=== PATIENT | male | born 1985 | race Caucasian/White ===

== ENCOUNTER 2017-06-12 18:29 | Inpatient (IN) | payer OTHER ==
[~2017-06-12] VITALS: Ht 170.2 cm; Wt 81.4 kg
[2017-06-12] MEDS ORDERED: SODIUM CHLORIDE 0.9% 1000ML 1,000 ML IV STA (18:58)
[2017-06-12] MEDS ORDERED: OPTIRAY 320 IV PRN (19:00)
--- NOTE | 2017-06-12 19:08 | EMERGENCY ROOM VISIT NOTE ---
History Report prepared by Norman: Chang Delong Under the Supervision of: Dr. Bob Ross M.D. First contact with patient: 18:46 Chief Complaint: FEVER Stated Complaint: FEVER, CROHN'S FLAREUP, RUNNY NOSE, SNEEZING History of Present Illness The patient is a 31 year old male who presents to the Emergency Room with complaints of persistent fever starting about 6 days ago. His highest temperature was 102.5 degrees Fahrenheit. He also notes a runny nose. About 3 weeks ago, the patient started having a minor Crohn's flare up. He continues to have symptoms related to Crohn's disease. He started taking Lialda today as prescribed by Dr. Nash. He recently had a chest/abdomen x-ray with normal results. He reports intermittent left lower quadrant abdominal pain. He currently denies any pain. He reports a normal appetite. He denies any other complaints. Source of History: patient Onset: about 6 days ago Position: other (global) Symptom Intensity: No pain currently Quality: other (fever) Timing: other (persistent) Associated Symptoms: + abdominal pain Review of Systems See HPI for pertinent positives & negatives. A total of 10 systems reviewed and were otherwise negative. Past Medical & Surgical Medical Problems: (1) Bronchitis (2) Crohn's disease (3) Crohns disease (4) Fever Surgical Problems: (1) [place] teeth removed Family History Cancer Heart disease Hypertension Social History Smoking Status: Never Smoker Marital Status: Housing Status: lives with family Occupation Status: employed Current/Historical Medications Scheduled Mesalamine (Lialda), 2 TAB PO QAM Allergies Coded Allergies: No Known Allergies (Unverified , 06/12/17) Physical Exam Vital Signs Date Time Temp Pulse Resp B/P (MAP) Pulse Ox O2 Delivery O2 Flow Rate FiO2 06/12/17 21:45 38.3 118 18 125/88 96 Room Air 06/12/17 18:38 37.3 110 20 122/85 95 Room Air Physical Exam GENERAL: Patient is a healthy-appearing well-nourished HEAD: Normocephalic atraumatic EYES: Ocular movements intact pupils equal and react to light OROPHARYNX mucous membranes are moist no exudates present no erythema or edema present NECK: Supple no nuchal rigidity CHEST: Good equal expansion LUNGS: Clear and equal to auscultation CARDIAC: Normal S1 and S2 ABDOMEN: Soft tenderness in the left lower quadrant, no guarding BACK: No CVA tenderness EXTREMITIES: No pain upon palpation normal muscle strength in all groups no clubbing cyanosis or edema NEURO: Patient is following commands and answering questions appropriately. Alert and oriented x3 Cranial Nerves 2-12 grossly intact Medical Decision & Procedures ER Provider Diagnostic Interpretation: CT results as stated below per my review and radiologist interpretation: ABD/PELVIS IV CONTRAST ONLY HISTORY: 31 years-old Male Pt c/o acute left lower quadrant abdominal pain COMPARISON: None available TECHNIQUE: Multiple axial images of the abdomen and pelvis were obtained following the intravenous administration of 120 mL Optiray 320. A dose lowering technique was used consistent with the principals of ROSY. FINDINGS: Lung bases are generally clear. Inferior cardiac chambers are unremarkable. No pneumoperitoneum is identified. The liver, gallbladder, pancreas and adrenal glands appear normal. Apparent 5 mm low attenuating lesion of the medial spleen is thought to reflect a pseudolesion secondary fat filled splenic cleft. Bilateral kidneys, ureters, urinary bladder, prostate appear normal. The abdominal aorta is normal in both course and caliber. Portal vein is patent. There are a few scattered mildly prominent retroperitoneal lymph nodes present with aortic lymph nodes measuring up to 1.2 x 0.8 cm mesenteric lymph nodes are seen measuring up to 1.5 x 1.0 cm. Stomach appears normal. There are a few nondilated loops of small bowel demonstrate air-fluid leveling suggesting ileus. There is circumferential wall thickening of the rectosigmoid extending to the hepatic flexure with associated surrounding inflammatory stranding and engorgement of the mesenteric vessels. No significant inflammation of the terminal ileum. There is no evidence of acute appendicitis. Fluid-filled rectosigmoid is compatible with associated diarrheal state. Soft tissues are unremarkable. 1.4 cm synovial herniation pit of the left proximal femur. There is no evidence of sacroiliitis. IMPRESSION: 1. Moderate circumferential wall thickening of the colon extending from the rectum to the hepatic flexure with surrounding inflammatory changes is compatible with colitis. Considerations would include infectious colitis or inflammatory bowel disease. 2. No bowel obstruction. 3. Reactive small bowel ileus is noted along with reactive adenopathy. The above report was generated using voice recognition software. It may contain grammatical, syntax or spelling errors. Electronically signed by: Anderson Moura M.D. 06/12/2017 9:11 PM Dictated Date/Time: 06/12/2017 9:02 PM Laboratory Results 06/12/17 19:24 Red Blood Count 4.91, Mean Corpuscular Volume 86.2, Mean Corpuscular Hemoglobin 29.1, Mean Corpuscular Hemoglobin Concent 33.8, Mean Platelet Volume 10.8, Neutrophils (%) (Auto) 68.1, Lymphocytes (%) (Auto) 14.8, Monocytes (%) (Auto) 13.9, Eosinophils (%) (Auto) 2.2, Basophils (%) (Auto) 0.3, Neutrophils # (Auto ) 9.87, Lymphocytes # (Auto) 2.14, Monocytes # (Auto) 2.01, Eosinophils # (Auto ) 0.32, Basophils # (Auto) 0.05 06/12/17 19:24 Test 06/12/17 19:24 06/12/17 19:33 06/12/17 20:00 White Blood Count 14.49 K/uL (4.8-10.8) Red Blood Count 4.91 M/uL (4.7-6.1) Hemoglobin 14.3 g/dL (14.0-18.0) Hematocrit 42.3 % (42-52) Mean Corpuscular Volume 86.2 fL (80-100) Mean Corpuscular Hemoglobin 29.1 pg (25-34) Mean Corpuscular Hemoglobin Concent 33.8 g/dl (32-36) Platelet Count 305 K/uL (130-400) Mean Platelet Volume 10.8 fL (7.4-10.4) Neutrophils (%) (Auto) 68.1 % Lymphocytes (%) (Auto) 14.8 % Monocytes (%) (Auto) 13.9 % Eosinophils (%) (Auto) 2.2 % Basophils (%) (Auto) 0.3 % Neutrophils # (Auto) 9.87 K/uL (1.4-6.5) Lymphocytes # (Auto) 2.14 K/uL (1.2-3.4) Monocytes # (Auto) 2.01 K/uL (0.11-0.59) Eosinophils # (Auto) 0.32 K/uL (0-0.5) Basophils # (Auto) 0.05 K/uL (0-0.2) RDW Standard Deviation 40.2 fL (36.4-46.3) RDW Coefficient of Variation 12.6 % (11.5-14.5) Immature Granulocyte % (Auto) 0.7 % Immature Granulocyte # (Auto) 0.10 K/uL (0.00-0.02) Est Creatinine Clear Calc Drug Dose 98.1 ml/min Estimated GFR () 102.4 Estimated GFR (Non- 88.4 BUN/Creatinine Ratio 7.2 (10-20) Calcium Level 8.7 mg/dl (8.5-10.1) Total Bilirubin 0.7 mg/dl (0.2-1) Direct Bilirubin 0.2 mg/dl (0-0.2) Aspartate Amino Transf (AST/SGOT) 9 U/L (15-37) Alanine Aminotransferase (ALT/SGPT) 22 U/L (12-78) Alkaline Phosphatase 85 U/L (45-117) Total Protein 6.9 gm/dl (6.4-8.2) Albumin 2.9 gm/dl (3.4-5.0) Bedside Hemoglobin 14.3 g/dl (14.0-18.0) Bedside Hematocrit 42 % (42-52) Bedside Sodium 135 mEq/L (135-144) Bedside Potassium 3.4 mEq/L (3.3-5.0) Bedside Chloride 96 mEq/L (101-112) Bedside Total CO2 27 mEq/l (24-31) Anion Gap 16.0 mmol/L (16-25) Bedside Blood Urea Nitrogen 7 mg/dl (7-18) Bedside Creatinine 1.2 mg/dl (0.6-1.3) Bedside Glucose (other) 109 mg/dl (70-99) Bedside Ionized Calcium (Chepe) 1.10 mmol/l (1.12-1.32) Urine Color YELLOW Urine Appearance CLEAR (CLEAR) Urine pH 6.0 (4.5-7.5) Urine Specific [place] 1.017 (1.000-1.030) Urine Protein TRACE (NEG) Urine Glucose (UA) NEG (NEG) Urine Ketones 2+ (NEG) Urine Occult Blood NEG (NEG) Urine Nitrite NEG (NEG) Urine Bilirubin NEG (NEG) Urine Urobilinogen NEG (NEG) Urine Leukocyte Esterase NEG (NEG) Urine WBC (Auto) 5-10 /hpf (0-5) Urine RBC (Auto) 0-4 /hpf (0-4) Urine Hyaline Casts (Auto) 5-10 /lpf (0-5) Urine Epithelial Cells (Auto) 20-30 /lpf (0-5) Urine Bacteria (Auto) NEG (NEG) Labs reviewed by ED physician. Medications Administered Medications (Trade) Dose Ordered Sig/Ameya Route Start Time Stop Time Status Last Admin Dose Admin Sodium Chloride 1,000 ml @ 999 mls/hr Q1H1M STAT IV 06/12/17 18:58 06/12/17 19:58 DC 06/12/17 19:44 999 MLS/HR Ketorolac Tromethamine (Toradol Inj) 30 mg NOW STAT IV 06/12/17 21:54 06/12/17 21:56 DC 06/12/17 22:39 30 MG ED Course 184: Past medical records reviewed. The patient was evaluated in room C09. A complete history and physical examination was performed. 1857: Sodium Chloride 1000 ml @ 999 mls/hr IV 2153: Flagyl/NSS 500 mg IV, Cipro/D5W 400 mg IV, Toradol Inj 30 mg IV 7: Upon reexamination the patient is resting comfortably. I discussed results and treatment plan with the patient. He verbalizes agreement and understanding. [facility] The patient will be evaluated for further management. Medical Decision Differential diagnosis: Etiologies such as appendicitis, diverticulitis, PUD, biliary pathology, UTI, pancreatitis, obstruction, mesenteric ischemia, aortic pathology, infections, inflammatory bowel disease, renal colic, as well as others were entertained. This is a 31-year-old male who presents emergency department complaining of fevers as well as abdominal pain. 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 He was seen in the office today and started on a medication. He does have an elevation in his white blood count cell count and the patient's CAT scan is concerning for colitis. He did spike a fever in the emergency department and based on this finding along with the elevation in the white blood cell count I did recommend that the patient be admitted to the medicine service. Patient was in agreement with the treatment plan. Medication Reconcilliation Current Medication List: was personally reviewed by me Blood Pressure Screening Patient's blood pressure: Normal blood pressure Consults Time Called: 2155 Consulting Physician: [facility] Returned Call: [phone] [facility] Impression Primary Impression: Fever Additional Impression: Colitis Scribe Attestation The scribe's documentation has been prepared under my direction and personally reviewed by me in its entirety. I confirm that the note above accurately reflects all work, treatment, procedures, and medical decision making performed by me. Departure Information Dispostion Being Evaluated By Hospitalist Referrals Graeme Nash M.D. (PCP) Patient Instructions My [facility] Problem Qualifiers Primary Impression: Fever Fever type: unspecified Qualified Codes: R50.9 - Fever, unspecified
[2017-06-12 19:37] LABS: BASO % 0.3 %; BASO ABS # 0.05 K/uL (0-0.2); COMPLETE YES; EOS % 2.2 %; HEMATOCRIT 42.3 % (42-52); IG% 0.7 %; LYMPH % 14.8 %; LYMPH ABS # 2.14 K/uL (1.2-3.4); MEAN CELL VOLUME 86.2 fL (80-100); MEAN CORPUSCULAR HEMOGLOBIN 29.1 pg (25-34); MEAN CORPUSCULAR HGB CONC 33.8 g/dl (32-36); MEAN PLATELET VOLUME 10.8 fL (7.4-10.4); MONO % 13.9 %; NEUT % 68.1 %; PLATELET COUNT 305 K/uL (130-400); RED BLOOD COUNT 4.91 M/uL (4.7-6.1); WHITE BLOOD COUNT 14.49 K/uL (4.8-10.8)
[2017-06-12 19:50] LABS: ISTAT CREATININE 1.2 mg/dl (0.6-1.3); ISTAT HEMOGLOBIN 14.3 g/dl (14.0-18.0); ISTAT IONIZED CALCIUM 1.1 mmol/l (1.12-1.32)
[2017-06-12 19:58] LABS: BUN/CREATININE RATIO 7.2 (10-20); CALCIUM 8.7 mg/dl (8.5-10.1); CREATININE 1.1 mg/dl (0.60-1.40); POTASSIUM 3.4 mmol/L (3.5-5.1)
[2017-06-12] MEDS ORDERED: MESA1.2T PO (20:57)
--- NOTE | 2017-06-12 21:12 | DIAGNOSTIC IMAGING REPORT ---
ABD/PELVIS IV CONTRAST ONLY HISTORY: 31 years-old Male Pt c/o acute left lower quadrant abdominal pain COMPARISON: None available TECHNIQUE: Multiple axial images of the abdomen and pelvis were obtained following the intravenous administration of 120 mL Optiray 320. A dose lowering technique was used consistent with the principals of ROSY. FINDINGS: Lung bases are generally clear. Inferior cardiac chambers are unremarkable. No pneumoperitoneum is identified. The liver, gallbladder, pancreas and adrenal glands appear normal. Apparent 5 mm low attenuating lesion of the medial spleen is thought to reflect a pseudolesion secondary fat filled splenic cleft. Bilateral kidneys, ureters, urinary bladder, prostate appear normal. The abdominal aorta is normal in both course and caliber. Portal vein is patent. There are a few scattered mildly prominent retroperitoneal lymph nodes present with aortic lymph nodes measuring up to 1.2 x 0.8 cm mesenteric lymph nodes are seen measuring up to 1.5 x 1.0 cm. Stomach appears normal. There are a few nondilated loops of small bowel demonstrate air-fluid leveling suggesting ileus. There is circumferential wall thickening of the rectosigmoid extending to the hepatic flexure with associated surrounding inflammatory stranding and engorgement of the mesenteric vessels. No significant inflammation of the terminal ileum. There is no evidence of acute appendicitis. Fluid-filled rectosigmoid is compatible with associated diarrheal state. Soft tissues are unremarkable. 1.4 cm synovial herniation pit of the left proximal femur. There is no evidence of sacroiliitis. IMPRESSION: 1. Moderate circumferential wall thickening of the colon extending from the rectum to the hepatic flexure with surrounding inflammatory changes is compatible with colitis. Considerations would include infectious colitis or inflammatory bowel disease. 2. No bowel obstruction. 3. Reactive small bowel ileus is noted along with reactive adenopathy. The above report was generated using voice recognition software. It may contain grammatical, syntax or spelling errors. Electronically signed by: Anderson Moura M.D. 06/12/2017 9:11 PM Dictated Date/Time: 06/12/2017 9:02 PM
[2017-06-12] MEDS ORDERED: KETOROLAC TROMETHAMINE 30 MG/ML VIAL IV STA (21:54)
[2017-06-12] MEDS ORDERED: METRONIDAZOLE 500MG / 100ML NSS IV STA (21:54)
[2017-06-12] MEDS ORDERED: CIPROFLOXACIN 400MG / 200ML D5W IV STA (21:54)
--- NOTE | 2017-06-12 22:37 | History and Physical ---
History & Physical Date & Time of Service: Jun 12, 2017 at 22:36 . Chief Complaint: abdominal pain, nausea, vomiting, diarrhea . Primary Care Physician: Graeme Nash M.D. . History of Present Illness Source: patient, clinic records, hospital records 31 YO male followed by Dr. Nash for GI. Plans on establishing with Dr. Stuart for primary care. History of Crohn's disease diagnosed at the age of 17. Crohn's has been quiescent over past several years until 2-3 weeks ago. Developed several loose stools / day, occasionally with a small amount of rectal bleeding. Intermittent LLQ abdominal pain. Low grade fevers. He was seen by Dr. Nash in clinic on 06/11/17. Stool studies and other labs were ordered. C diff was negative. Preliminary stool culture negative so far. Started on Lialda. Came to ED tonight because of worsening symptoms- fever, nausea, vomiting, more frequent loose stools, more severe left-sided abdominal pain. . Past Medical/Surgical History Medical Problems: (1) Bronchitis Status: Resolved (2) Crohn's disease Status: Resolved Surgical Problems: (1) [place] teeth removed Status: Resolved Family History MOTHER Multiple sclerosis GRANDMOTHER Ulcerative colitis Social History Smoking Status: Never Smoker Alcohol Use: occasionally Marital Status: Occupational Status: employed Allergies Coded Allergies: No Known Allergies (Unverified , 06/12/17) Home Medications Scheduled Mesalamine (Lialda), 2 TAB PO QAM Review of Systems Constitutional: + fever, + weight loss Eyes: No worsening of vision, No diplopia ENT: + nasal symptoms Respiratory: No cough, No shortness of breath Cardiovascular: No chest pain, No edema Abdomen: + problem reported (as noted above in HPI) Musculoskeletal: + problem reported (back pain) Genitourinary - Male: No hematuria, No dysuria Neurologic: + problem reported (mild headache assoicated with fevers) Endocrine: No excessive thirst, No excessive urination Hematologic / Lymphatic: No abnormal bleeding/bruising Integumentary: No rash, No new/changing skin lesions Physical Exam Vital Signs Date Time Temp Pulse Resp B/P (MAP) Pulse Ox O2 Delivery O2 Flow Rate FiO2 06/12/17 21:45 38.3 118 18 125/88 96 Room Air 06/12/17 18:38 37.3 110 20 122/85 95 Room Air General Appearance: + mild distress Head: normocephalic, atraumatic Eyes: normal inspection, PERRL, EOMI, sclerae normal ENT: hearing grossly normal, pharynx normal Neck: supple, no adenopathy, thyroid normal, trachea midline Respiratory/Chest: lungs clear, no respiratory distress, no accessory muscle use Cardiovascular: regular rate, rhythm, no edema, no gallop, no JVD, no murmur Abdomen/GI: normal bowel sounds, soft, no organomegaly, no pulsatile mass, + pertinent finding (moderate left-sided tenderness without rebound) Extremities/Musculoskelatal: no calf tenderness, no pedal edema 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 (PERRL, EOMI), alert, normal mood/ affect, oriented x 3 Skin: normal color, warm/dry, no rash Lymphatic: no adenopathy (cervical) Diagnostics Laboratory Results Results Past 24 Hours Test 06/12/17 19:24 06/12/17 19:33 Range/Units White Blood Count 14.49 4.8-10.8 K/uL Red Blood Count 4.91 4.7-6.1 M/uL Hemoglobin 14.3 14.0-18.0 g/dL Hematocrit 42.3 42-52 % Mean Corpuscular Volume 86.2 80-100 fL Mean Corpuscular Hemoglobin 29.1 25-34 pg Mean Corpuscular Hemoglobin Concent 33.8 32-36 g/dl Platelet Count 305 130-400 K/uL Mean Platelet Volume 10.8 7.4-10.4 fL Neutrophils (%) (Auto) 68.1 % Lymphocytes (%) (Auto) 14.8 % Monocytes (%) (Auto) 13.9 % Eosinophils (%) (Auto) 2.2 % Basophils (%) (Auto) 0.3 % Neutrophils # (Auto) 9.87 1.4-6.5 K/uL Lymphocytes # (Auto) 2.14 1.2-3.4 K/uL Monocytes # (Auto) 2.01 0.11-0.59 K/uL Eosinophils # (Auto) 0.32 0-0.5 K/uL Basophils # (Auto) 0.05 0-0.2 K/uL RDW Standard Deviation 40.2 36.4-46.3 fL RDW Coefficient of Variation 12.6 11.5-14.5 % Immature Granulocyte % (Auto) 0.7 % Immature Granulocyte # (Auto) 0.10 0.00-0.02 K/uL Sodium Level 136 136-145 mmol/L Potassium Level 3.4 3.5-5.1 mmol/L Chloride Level 102 98-107 mmol/L Carbon Dioxide Level 30 21-32 mmol/L Anion Gap 4.0 16.0 16-25 mmol/L Blood Urea Nitrogen 8 7-18 mg/dl Creatinine 1.10 0.60-1.40 mg/dl Est Creatinine Clear Calc Drug Dose 98.1 ml/min Estimated GFR () 102.4 Estimated GFR (Non- 88.4 BUN/Creatinine Ratio 7.2 10-20 Random Glucose 103 70-99 mg/dl Calcium Level 8.7 8.5-10.1 mg/dl Total Bilirubin 0.7 0.2-1 mg/dl Direct Bilirubin 0.2 0-0.2 mg/dl Aspartate Amino Transf (AST/SGOT) 9 15-37 U/L Alanine Aminotransferase (ALT/SGPT) 22 12-78 U/L Alkaline Phosphatase 85 45-117 U/L Total Protein 6.9 6.4-8.2 gm/dl Albumin 2.9 3.4-5.0 gm/dl Bedside Hemoglobin 14.3 14.0-18.0 g/dl Bedside Hematocrit 42 42-52 % Bedside Sodium 135 135-144 mEq/L Bedside Potassium 3.4 3.3-5.0 mEq/L Bedside Chloride 96 101-112 mEq/L Bedside Total CO2 27 24-31 mEq/l Bedside Blood Urea Nitrogen 7 7-18 mg/dl Bedside Creatinine 1.2 0.6-1.3 mg/dl Bedside Glucose (other) 109 70-99 mg/dl Bedside Ionized Calcium (Chepe) 1.10 1.12-1.32 mmol/l Diagnostic Radiology ABD/PELVIS IV CONTRAST ONLY HISTORY: 31 years-old Male Pt c/o acute left lower quadrant abdominal pain COMPARISON: None available TECHNIQUE: Multiple axial images of the abdomen and pelvis were obtained following the intravenous administration of 120 mL Optiray 320. A dose lowering technique was used consistent with the principals of ROSY. FINDINGS: Lung bases are generally clear. Inferior cardiac chambers are unremarkable. No pneumoperitoneum is identified. The liver, gallbladder, pancreas and adrenal glands appear normal. Apparent 5 mm low attenuating lesion of the medial spleen is thought to reflect a pseudolesion secondary fat filled splenic cleft. Bilateral kidneys, ureters, urinary bladder, prostate appear normal. The abdominal aorta is normal in both course and caliber. Portal vein is patent. There are a few scattered mildly prominent retroperitoneal lymph nodes present with aortic lymph nodes measuring up to 1.2 x 0.8 cm mesenteric lymph nodes are seen measuring up to 1.5 x 1.0 cm. Stomach appears normal. There are a few nondilated loops of small bowel demonstrate air-fluid leveling suggesting ileus. There is circumferential wall thickening of the rectosigmoid extending to the hepatic flexure with associated surrounding inflammatory stranding and engorgement of the mesenteric vessels. No significant inflammation of the terminal ileum. There is no evidence of acute appendicitis. Fluid-filled rectosigmoid is compatible with associated diarrheal state. Soft tissues are unremarkable. 1.4 cm synovial herniation pit of the left proximal femur. There is no evidence of sacroiliitis. IMPRESSION: 1. Moderate circumferential wall thickening of the colon extending from the rectum to the hepatic flexure with surrounding inflammatory changes is compatible with colitis. Considerations would include infectious colitis or inflammatory bowel disease. 2. No bowel obstruction. 3. Reactive small bowel ileus is noted along with reactive adenopathy. The above report was generated using voice recognition software. It may contain grammatical, syntax or spelling errors. Electronically signed by: Anderson Moura M.D. 06/12/2017 9:11 PM Dictated Date/Time: 06/12/2017 9:02 PM . Impression Assessment and Plan CROHN'S DISEASE Flare of Crohn's disease. No apparent infectious precipitation. CT shows left-sided colitis as noted. Initial management will consist of bowel rest, IV fluids, analgesics, antiemetics, IV antibiotic therapy. Consult GI re: further evaluation and management. HYPOKALEMIA Secondary to GI losses. IV replacement. Follow. VTE PROPHYLAXIS No anticoagulants due to GI bleeding. SCD's. Ambulate. DISPOSITION Expected discharge to home. GI follow-up with Dr. Nash. FM follow-up with Dr. Stuart. . Additional Copies To Quique Stuart M.D.
[2017-06-12] MEDS ORDERED: ONDANSETRON INJ 2 MG/ML 2 ML VIAL IV PRN (22:45)
[2017-06-12 22:57] LABS: URINE APPEARANCE CLEAR (CLEAR); URINE BILIRUBIN NEG (NEG); URINE COLOR YELLOW; URINE EPITHELIAL CELL AUTO 20-30 /lpf (0-5); URINE NITRITE NEG (NEG); URINE SPECIFIC GRAVITY 1.017 (1.000-1.030); UROBILINOGEN NEG (NEG)
[2017-06-12 23:00] LABS: MANUAL MICROSCOPIC REQUIRED? NO; REVIEW REQ? NO
[2017-06-13 00:50] VITALS: BP 135/84; PULSE 95; TEMP 37.1; O2SAT 95; Ht 170.2 cm; Wt 81.4 kg
[2017-06-13] MEDS: D5W AND LACTATED RINGERS 1,000 ML IV SCH ×4 (00:56→19:22)
[2017-06-13] MEDS: AMPICILLIN/SULBACTAM SOD INJ 3,000 MG in SODIUM CHLORIDE 0.9% 100ML 100 ML IV SCH ×4 (02:43→19:22)
[2017-06-13 04:00] VITALS: BP 119/67; PULSE 136; TEMP 37.7; O2SAT 98
[2017-06-13] MEDS: ACETAMINOPHEN 325 MG TAB PO PRN ×3 (05:37→17:09)
[2017-06-13 08:00] VITALS: BP 116/71; PULSE 125; TEMP 37.1; O2SAT 95
[2017-06-13 10:29] VITALS: TEMP 38.2
[2017-06-13 11:23] LABS: HEMATOCRIT 39.6 % (42-52); MEAN CELL VOLUME 85.7 fL (80-100); MEAN CORPUSCULAR HEMOGLOBIN 27.9 pg (25-34); MEAN CORPUSCULAR HGB CONC 32.6 g/dl (32-36); MEAN PLATELET VOLUME 10.5 fL (7.4-10.4); PLATELET COUNT 304 K/uL (130-400); RED BLOOD COUNT 4.62 M/uL (4.7-6.1); WHITE BLOOD COUNT 19.07 K/uL (4.8-10.8)
[2017-06-13 11:38] VITALS: BP 109/70; PULSE 131; TEMP 37.8; O2SAT 96
[2017-06-13 11:45] LABS: BUN/CREATININE RATIO 7.7 (10-20); CALCIUM 7.9 mg/dl (8.5-10.1); CREATININE 0.97 mg/dl (0.60-1.40); POTASSIUM 3.3 mmol/L (3.5-5.1)
--- NOTE | 2017-06-13 11:56 | Progress Note ---
Internal Med Progress Note Date of Service: Jun 13, 2017. Provider Documentation: SUBJECTIVE: The patient was seen and examined Has had feverish feeling last night Bowel moved 4 times since this morning Has right Lower Quadrant pain with Nausea OBJECTIVE: Vital Signs-as noted below Exam: General-Minimal distress at rest Eyes-normal ENT-normal Neck-supple Lungs-Clear to ausucltate bilaterally Heart-Regular.no murmur appreciated Abdomen-Soft,mildly tender all over with worst tenderness in RLQ No guarding and or rigidity Extremities-No edema Neuro-AAOx3 Lab data as noted below. ASSESSMENT & PLAN: FLARE OF CROHN'S DISEASE No apparent infectious precipitation but may have infection . CT shows left-sided colitis as noted. Initial management will consist of bowel rest, IV fluids, analgesics, antiemetics, IV antibiotic therapy with Unasyn Consult GI -appreciate Input Likely to go for Colonoscopy today May need Steroid HYPOKALEMIA Secondary to GI losses. IV replacement. Remains low -will supplement more VTE PROPHYLAXIS No anticoagulants due to GI bleeding. SCD's. Ambulate. DISPOSITION Expected discharge to home. GI follow-up with Dr. Nash. FM follow-up with Dr. Stuart. Vital Signs: Date Time Temp Pulse Resp B/P (MAP) Pulse Ox O2 Delivery O2 Flow Rate FiO2 06/13/17 11:38 37.8 131 16 109/70 (83) 96 Room Air 06/13/17 10:29 38.2 06/13/17 08:00 Room Air 06/13/17 08:00 37.1 125 16 116/71 (86) 95 Room Air 06/13/17 04:00 37.7 136 18 119/67 (84) 98 Room Air 06/13/17 04:00 37.7 136 18 119/67 (84) 98 Room Air 06/13/17 00:50 37.1 95 18 135/84 95 Room Air 06/13/17 00:20 37.4 104 18 116/64 94 Room Air 06/12/17 21:45 38.3 118 18 125/88 96 Room Air 06/12/17 18:38 37.3 110 20 122/85 95 Room Air Lab Results: Results Past 24 Hours Test 06/12/17 19:24 06/12/17 19:33 06/12/17 20:00 06/13/17 10:54 Range/Units White Blood Count 14.49 19.07 4.8-10.8 K/uL Red Blood Count 4.91 4.62 4.7-6.1 M/uL Hemoglobin 14.3 12.9 14.0-18.0 g/dL Hematocrit 42.3 39.6 42-52 % Mean Corpuscular Volume 86.2 85.7 80-100 fL Mean Corpuscular Hemoglobin 29.1 27.9 25-34 pg Mean Corpuscular Hemoglobin Concent 33.8 32.6 32-36 g/dl Platelet Count 305 304 130-400 K/uL Mean Platelet Volume 10.8 10.5 7.4-10.4 fL Neutrophils (%) (Auto) 68.1 % Lymphocytes (%) (Auto) 14.8 % Monocytes (%) (Auto) 13.9 % Eosinophils (%) (Auto) 2.2 % Basophils (%) (Auto) 0.3 % Neutrophils # (Auto) 9.87 1.4-6.5 K/uL Lymphocytes # (Auto) 2.14 1.2-3.4 K/uL Monocytes # (Auto) 2.01 0.11-0.59 K/uL Eosinophils # (Auto) 0.32 0-0.5 K/uL Basophils # (Auto) 0.05 0-0.2 K/uL RDW Standard Deviation 40.2 40.0 36.4-46.3 fL RDW Coefficient of Variation 12.6 12.7 11.5-14.5 % Immature Granulocyte % (Auto) 0.7 % Immature Granulocyte # (Auto) 0.10 0.00-0.02 K/uL Sodium Level 136 138 136-145 mmol/L Potassium Level 3.4 3.3 3.5-5.1 mmol/L Chloride Level 102 103 98-107 mmol/L Carbon Dioxide Level 30 27 21-32 mmol/L Anion Gap 4.0 16.0 8.0 3-11 mmol/L Blood Urea Nitrogen 8 8 7-18 mg/dl Creatinine 1.10 0.97 0.60-1.40 mg/dl Est Creatinine Clear Calc Drug Dose 98.1 110.8 ml/min Estimated GFR () 102.4 119.2 Estimated GFR (Non- 88.4 102.9 BUN/Creatinine Ratio 7.2 7.7 10-20 Random Glucose 103 144 70-99 mg/dl Calcium Level 8.7 7.9 8.5-10.1 mg/dl Total Bilirubin 0.7 0.2-1 mg/dl Direct Bilirubin 0.2 0-0.2 mg/dl Aspartate Amino Transf (AST/SGOT) 9 15-37 U/L Alanine Aminotransferase (ALT/SGPT) 22 12-78 U/L Alkaline Phosphatase 85 45-117 U/L Total Protein 6.9 6.4-8.2 gm/dl Albumin 2.9 3.4-5.0 gm/dl Bedside Hemoglobin 14.3 14.0-18.0 g/dl Bedside Hematocrit 42 42-52 % Bedside Sodium 135 135-144 mEq/L Bedside Potassium 3.4 3.3-5.0 mEq/L Bedside Chloride 96 101-112 mEq/L Bedside Total CO2 27 24-31 mEq/l Bedside Blood Urea Nitrogen 7 7-18 mg/dl Bedside Creatinine 1.2 0.6-1.3 mg/dl Bedside Glucose (other) 109 70-99 mg/dl Bedside Ionized Calcium (Chepe) 1.10 1.12-1.32 mmol/l Urine Color YELLOW Urine Appearance CLEAR CLEAR Urine pH 6.0 4.5-7.5 Urine Specific [place] 1.017 1.000-1.030 Urine Protein TRACE NEG Urine Glucose (UA) NEG NEG Urine Ketones 2+ NEG Urine Occult Blood NEG NEG Urine Nitrite NEG NEG Urine Bilirubin NEG NEG Urine Urobilinogen NEG NEG Urine Leukocyte Esterase NEG NEG Urine WBC (Auto) 5-10 0-5 /hpf Urine RBC (Auto) 0-4 0-4 /hpf Urine Hyaline Casts (Auto) 5-10 0-5 /lpf Urine Epithelial Cells (Auto) 20-30 0-5 /lpf Urine Bacteria (Auto) NEG NEG
--- NOTE | 2017-06-13 12:08 | Gastrointestinal Consultation ---
Gastrointestinal Consultation Date of Consultation: Jun 13, 2017 Attending Physician: Dr. Foster Consulting Physician: Dr. Randhawa Reason for Consultation: Crohn's Disease History of Present Illness Patient is a 31 year old male patient of who has not recently had a PCP but has a new pt appt pending with Dr. Salas. He presented to the ED for abdominal pain and GI is consulted for Crohn's Disease. He was diagnosed in 2002 (during his college years)at which time his symptoms were pain, poor appetite, weight loss. He underwent colonoscopy by Dr. Farooq in 2002 with proctitis and acute and chronic cryptitis on path. Canasa was prescribed BID. More recent management was by Dr. Hollis. He had been without symptoms for several years, but a few months ago, he began with abdominal pain, nausea, poor appetite,bloody diarrhea. He reinitiated care for the Crohn's by seeing Dr. Nash in clinic a few days ago and colonoscopy was scheduled. In the past few days, his pain worsened, he became weak, has experienced nausea and had low grade fevers/sweats. On arrival in the [facility] ED yesterday, WBC was 14 (today 19), HB 14, Platelets 305 , albumin 2.9. He has had a fever to 37.8, tachycardia to 130. CT with IV, no oral contrast with moderate circumferential wall thickening of the colon extending from the rectum to the hepatic flexure. C-diff has been negative. The pt is seen and examined while he is resting in bed. He is awake, alert, oriented but uncomfortable. He was started on Unasyn. On exam he is moderately tender but without guarding over the suprapubic, left colon and epigastric areas. Abdomen is soft. Past Medical/Surgical History Medical Problems: (1) Colitis Status: Acute Past Medical History: 1. Crohn's Disease. Past Surgical History: 1. Colonoscopies, previously by Dr. Farooq (see HPI) then by Dr. Hollis in [place] (according to the pt). 2. No prior surgeries. 3. Dental surgery. Family History Multiple sclerosis MOTHER Ulcerative colitis GRANDMOTHER Social History Smoking Status: Never Smoker Marital Status: Housing Status: lives with family Occupation Status: employed Allergies Coded Allergies: No Known Allergies (Unverified , 06/12/17) Current Medications Home Meds and Scripts Medications Dose Route/Sig Max Daily Dose Days Date Category Denisselda (Mesalamine) 1.2 Gm Tab 2 Tab PO QAM 06/12/17 Reported Review of Systems Constitutional: + fever, + sweats, + weight loss, + weakness, No chills Eyes: No eye pain, No redness ENT: No sore throat, No trouble swallowing, No pain on swallowing Respiratory: No cough, No wheezing, No shortness of breath, No dyspnea on exertion Cardiac: No chest pain, No edema, No palpitations Abdomen: + see HPI, + pain, + nausea, + vomiting, + diarrhea, + GI bleeding Neuro: No memory loss, No weakness, No numbness/tingling, No vertigo, No balance problems Psych: No depression symptoms, No anxiety, No insomnia Heme: No abnormal bleeding/bruising, No night sweats Endo: No excessive thirst, No excessive urination Skin: No rash, No itch, No new/changing skin lesions, No jaundice Physical Exam Date Time Temp Pulse Resp B/P (MAP) Pulse Ox O2 Delivery O2 Flow Rate FiO2 06/13/17 11:38 37.8 131 16 109/70 (83) 96 Room Air 06/13/17 10:29 38.2 06/13/17 08:00 Room Air 06/13/17 08:00 37.1 125 16 116/71 (86) 95 Room Air 06/13/17 04:00 37.7 136 18 119/67 (84) 98 Room Air 06/13/17 04:00 37.7 136 18 119/67 (84) 98 Room Air 06/13/17 00:50 37.1 95 18 135/84 95 Room Air 06/13/17 00:20 37.4 104 18 116/64 94 Room Air 06/12/17 21:45 38.3 118 18 125/88 96 Room Air 06/12/17 18:38 37.3 110 20 122/85 95 Room Air General Appearance: + mild distress Eyes: normal inspection, EOMI Neck: supple, no adenopathy, thyroid normal, no JVD Respiratory/Chest: chest non-tender, lungs clear, normal breath sounds, no accessory muscle use Cardiovascular: regular rate, rhythm, no JVD, no murmur Abdomen: normal bowel sounds, soft, no organomegaly, + guarding, + tenderness ( moderate suprapubic, left mid and ) Extremities: normal inspection, no pedal edema, normal capillary refill Neurologic/Psych: alert, normal mood/affect, oriented x 3 Skin: normal color, no jaundice, warm/dry, no rash Laboratory Results Last 24 Hours Test 06/12/17 19:24 06/12/17 19:33 06/12/17 20:00 06/13/17 10:54 White Blood Count 14.49 K/uL 19.07 K/uL Red Blood Count 4.91 M/uL 4.62 M/uL Hemoglobin 14.3 g/dL 12.9 g/dL Hematocrit 42.3 % 39.6 % Mean Corpuscular Volume 86.2 fL 85.7 fL Mean Corpuscular Hemoglobin 29.1 pg 27.9 pg Mean Corpuscular Hemoglobin Concent 33.8 g/dl 32.6 g/dl Platelet Count 305 K/uL 304 K/uL Mean Platelet Volume 10.8 fL 10.5 fL Neutrophils (%) (Auto) 68.1 % Lymphocytes (%) (Auto) 14.8 % Monocytes (%) (Auto) 13.9 % Eosinophils (%) (Auto) 2.2 % Basophils (%) (Auto) 0.3 % Neutrophils # (Auto) 9.87 K/uL Lymphocytes # (Auto) 2.14 K/uL Monocytes # (Auto) 2.01 K/uL Eosinophils # (Auto) 0.32 K/uL Basophils # (Auto) 0.05 K/uL RDW Standard Deviation 40.2 fL 40.0 fL RDW Coefficient of Variation 12.6 % 12.7 % Immature Granulocyte % (Auto) 0.7 % Immature Granulocyte # (Auto) 0.10 K/uL Sodium Level 136 mmol/L Potassium Level 3.4 mmol/L Chloride Level 102 mmol/L Carbon Dioxide Level 30 mmol/L Anion Gap 4.0 mmol/L 16.0 mmol/L Blood Urea Nitrogen 8 mg/dl Creatinine 1.10 mg/dl Est Creatinine Clear Calc Drug Dose 98.1 ml/min Estimated GFR () 102.4 Estimated GFR (Non- 88.4 BUN/Creatinine Ratio 7.2 Random Glucose 103 mg/dl Calcium Level 8.7 mg/dl Total Bilirubin 0.7 mg/dl Direct Bilirubin 0.2 mg/dl Aspartate Amino Transf (AST/SGOT) 9 U/L Alanine Aminotransferase (ALT/SGPT) 22 U/L Alkaline Phosphatase 85 U/L Total Protein 6.9 gm/dl Albumin 2.9 gm/dl Bedside Hemoglobin 14.3 g/dl Bedside Hematocrit 42 % Bedside Sodium 135 mEq/L Bedside Potassium 3.4 mEq/L Bedside Chloride 96 mEq/L Bedside Total CO2 27 mEq/l Bedside Blood Urea Nitrogen 7 mg/dl Bedside Creatinine 1.2 mg/dl Bedside Glucose (other) 109 mg/dl Bedside Ionized Calcium (Chepe) 1.10 mmol/l Urine Color YELLOW Urine Appearance CLEAR Urine pH 6.0 Urine Specific [place] 1.017 Urine Protein TRACE Urine Glucose (UA) NEG Urine Ketones 2+ Urine Occult Blood NEG Urine Nitrite NEG Urine Bilirubin NEG Urine Urobilinogen NEG Urine Leukocyte Esterase NEG Urine WBC (Auto) 5-10 /hpf Urine RBC (Auto) 0-4 /hpf Urine Hyaline Casts (Auto) 5-10 /lpf Urine Epithelial Cells (Auto) 20-30 /lpf Urine Bacteria (Auto) NEG Impression Patient is a 31 year old male with what appears to be a flare of Crohn's Colitis. C-diff has been negative. Plan 1. Dr. Nash recommended that the pt undergo an unprepped flex sig prior to any steroids being started. 2. Flex sig this afternoon by Dr. Randhawa. I have seen, examined, and agree with the plan as outlined above by LAURENT Ritter -c-diff negative -plan on flex sig with biopsies including cmv eval
[2017-06-13] MEDS ORDERED: LIDOCAINE HCL 2% 2 ML VIAL (20MG/ML) ONE (13:10)
[2017-06-13] MEDS ORDERED: PROPOFOL IV EMULSION 10 MG/ML 20 ML VIAL IV ONE (13:10)
--- NOTE | 2017-06-13 14:13 | Anesthesiology Progress Note ---
Anesthesia Post Op Note Date & Time Jun 13, 2017 at 14:13 Vital Signs Pain Intensity: 0 Vital Signs Past 12 Hours Date Time Temp Pulse Resp B/P (MAP) Pulse Ox O2 Delivery O2 Flow Rate FiO2 06/13/17 14:04 105 115/75 (88) 98 Room Air 06/13/17 13:45 103 24 118/75 (89) 98 Room Air 06/13/17 13:00 37.7 113 16 117/70 (86) 94 Room Air 06/13/17 11:38 37.8 131 16 109/70 (83) 96 Room Air 06/13/17 10:29 38.2 06/13/17 08:00 Room Air 06/13/17 08:00 37.1 125 16 116/71 (86) 95 Room Air 06/13/17 04:00 37.7 136 18 119/67 (84) 98 Room Air 06/13/17 04:00 37.7 136 18 119/67 (84) 98 Room Air Notes Mental Status: alert / awake / arousable, participated in evaluation Pt Amnestic to Procedure: Yes Nausea / Vomiting: adequately controlled Pain: adequately controlled Airway Patency, RR, SpO2: stable & adequate BP & HR: stable & adequate Hydration State: stable & adequate Anesthetic Complications: no major complications apparent
[2017-06-13] MEDS: HYDROmorphone INJ 0.5 MG/0.5 ML SYR IV PRN ×3 (15:04→23:36)
[2017-06-13] MEDS ORDERED: TUBERCULIN SKIN TEST 5 TU in SYRINGE 0 ML ID ONE (16:00)
[2017-06-13] MEDS: MESALAMINE 250 MG CAPCR PO SCH ×2 (17:08→19:22)
[2017-06-13] MEDS: METHYLPREDNISOLONE IV 20 MG in SYRINGE 0 ML IV SCH ×2 (17:08→23:36)
[2017-06-14] VITALS: BP 112/73; PULSE 95; TEMP 36.8; O2SAT 95
[2017-06-14] MEDS: AMPICILLIN/SULBACTAM SOD INJ 3,000 MG in SODIUM CHLORIDE 0.9% 100ML 100 ML IV SCH ×4 (01:34→19:30)
[2017-06-14] MEDS: D5W AND LACTATED RINGERS 1,000 ML IV SCH ×4 (04:58→23:33)
[2017-06-14] MEDS: HYDROmorphone INJ 0.5 MG/0.5 ML SYR IV PRN ×2 (05:05→09:42)
[2017-06-14 07:19] LABS: HEMATOCRIT 40.4 % (42-52); MEAN CELL VOLUME 87.1 fL (80-100); MEAN CORPUSCULAR HEMOGLOBIN 27.8 pg (25-34); MEAN CORPUSCULAR HGB CONC 31.9 g/dl (32-36); MEAN PLATELET VOLUME 10.8 fL (7.4-10.4); PLATELET COUNT 361 K/uL (130-400); RED BLOOD COUNT 4.64 M/uL (4.7-6.1); WHITE BLOOD COUNT 18.59 K/uL (4.8-10.8)
[2017-06-14 07:46] VITALS: BP 111/68; PULSE 91; TEMP 36.6; O2SAT 93
[2017-06-14 07:48] LABS: BUN/CREATININE RATIO 6.7 (10-20); CALCIUM 8.6 mg/dl (8.5-10.1); CREATININE 0.76 mg/dl (0.60-1.40); POTASSIUM 3.5 mmol/L (3.5-5.1)
[2017-06-14] MEDS: METHYLPREDNISOLONE IV 20 MG in SYRINGE 0 ML IV SCH ×3 (08:16→23:33)
[2017-06-14 08:17] LABS: HEPATITIS B AB POS
[2017-06-14] MEDS: MESALAMINE 250 MG CAPCR PO SCH ×4 (08:17→19:31)
--- NOTE | 2017-06-14 09:49 | Gastroenterology Progress Note ---
Progress Note Date of Service: Jun 14, 2017 Subjective Pt evaluation today including: conversation w/ patient, physical exam The patient notes feeling somewhat improved today however he does continue to have diffuse abdominal cramping. He didn't undergo evaluation with Dr. overton yesterday who noted severe inflammatory changes consistent with Crohn's disease. The patient denies having any fevers last night but did notice having some sweats overnight Review of Systems Constitutional: No fever Respiratory: No cough, No wheezing, No dyspnea at rest Cardiac: No chest pain, No PND, No palpitations Medications Current Inpatient Medications Medications (Trade) Dose Ordered Sig/Ameya Route Start Time Stop Time Status Last Admin Dose Admin Ioversol (Optiray 320) 100 ml UD PRN IV 06/12/17 19:00 06/16/17 18:59 Acetaminophen (Tylenol Tab) 650 mg Q4H PRN PO 06/12/17 22:45 07/12/17 22:44 06/13/17 17:09 650 MG Ondansetron HCl (Zofran Inj) 4 mg Q6H PRN IV 06/12/17 22:45 07/12/17 22:44 06/13/17 10:26 4 MG Ampicillin Sodium/ Sulbactam Sodium 3000 mg/Sodium Chloride 108 ml @ 200 mls/hr Q6H IV 06/13/17 02:00 06/23/17 01:59 06/14/17 08:16 200 MLS/HR Dextrose/Lactated Ringer's 1,000 ml @ 150 mls/hr Q6H40M IV 06/13/17 00:48 07/13/17 00:47 06/14/17 04:58 150 MLS/HR Hydromorphone HCl (Dilaudid Inj) 0.5 mg Q4H PRN IV 06/12/17 23:15 06/26/17 23:14 06/14/17 09:42 0.5 MG Methylprednisolone Sodium Succinate 20 mg/Syringe 0.32 ml @ 1.5 mls/min Q8H IV 06/13/17 16:00 07/13/17 15:59 06/14/17 08:16 1.5 MLS/MIN Miscellaneous (Ppd Check) 1 ea Q48H ONCE N/A 06/15/17 16:00 06/15/17 16:01 Mesalamine (Pentasa Controlled Rel Cap) 250 mg QID PO 06/13/17 17:00 07/13/17 16:59 06/14/17 08:17 250 MG Oxycodone/ Acetaminophen (Percocet 5-325mg Tab) 1 tab Q4H PRN PO 06/14/17 09:30 06/28/17 09:29 UNV Objective Vital Signs Date Time Temp Pulse Resp B/P (MAP) Pulse Ox O2 Delivery O2 Flow Rate FiO2 06/14/17 07:49 Room Air 06/14/17 07:46 36.6 91 18 111/68 (82) 93 06/14/17 00:00 36.8 95 20 112/73 (86) 95 Room Air 06/14/17 00:00 Room Air 06/13/17 16:00 Room Air 06/13/17 14:04 105 115/75 (88) 98 Room Air 06/13/17 13:45 103 24 118/75 (89) 98 Room Air 06/13/17 13:00 37.7 113 16 117/70 (86) 94 Room Air 06/13/17 11:38 37.8 131 16 109/70 (83) 96 Room Air 06/13/17 10:29 38.2 Physical Exam General Appearance: + mild distress Eyes: PERRL Respiratory/Chest: lungs clear Cardiovascular: regular rate, rhythm, no murmur Abdomen: soft, + tenderness (left lower quadrant) Neurologic/Psych: oriented x 3 Skin: no jaundice Laboratory Results Last 24 Hours Test 06/13/17 10:54 06/14/17 06:22 White Blood Count 19.07 K/uL 18.59 K/uL Red Blood Count 4.62 M/uL 4.64 M/uL Hemoglobin 12.9 g/dL 12.9 g/dL Hematocrit 39.6 % 40.4 % Mean Corpuscular Volume 85.7 fL 87.1 fL Mean Corpuscular Hemoglobin 27.9 pg 27.8 pg Mean Corpuscular Hemoglobin Concent 32.6 g/dl 31.9 g/dl RDW Standard Deviation 40.0 fL 41.1 fL RDW Coefficient of Variation 12.7 % 12.8 % Platelet Count 304 K/uL 361 K/uL Mean Platelet Volume 10.5 fL 10.8 fL Sodium Level 138 mmol/L 143 mmol/L Potassium Level 3.3 mmol/L 3.5 mmol/L Chloride Level 103 mmol/L 107 mmol/L Carbon Dioxide Level 27 mmol/L 31 mmol/L Anion Gap 8.0 mmol/L 5.0 mmol/L Blood Urea Nitrogen 8 mg/dl 5 mg/dl Creatinine 0.97 mg/dl 0.76 mg/dl Est Creatinine Clear Calc Drug Dose 110.8 ml/min 142.5 ml/min Estimated GFR () 119.2 139.9 Estimated GFR (Non- 102.9 120.7 BUN/Creatinine Ratio 7.7 6.7 Random Glucose 144 mg/dl 158 mg/dl Calcium Level 7.9 mg/dl 8.6 mg/dl Hepatitis B Surface Antigen NEG Hepatitis B Surface Antibody POS Assessment and Plan Patient with a history of Crohn's disease admitted with refractory symptoms. Please continue with present dosing of steroids. I would suggest addition of Bentyl 3 times daily for his cramping.
--- NOTE | 2017-06-14 11:27 | Progress Note ---
Internal Med Progress Note Date of Service: Jun 14, 2017. Provider Documentation: SUBJECTIVE: The patient was seen and examined Has had feverish feeling last night Bowel moved 4 times since this morning 06/13/17 Has right Lower Quadrant pain with Nausea S/P Sigmoidoscopy yesterday-likely Crohn's flare OBJECTIVE: Vital Signs-as noted below Exam: General-Minimal distress at rest Eyes-normal ENT-normal Neck-supple Lungs-Clear to ausucltate bilaterally Heart-Regular.no murmur appreciated Abdomen-Soft,mildly tender all over with worst tenderness in RLQ No guarding and or rigidity Extremities-No edema Neuro-AAOx3 Lab data as noted below. ASSESSMENT & PLAN: FLARE OF CROHN'S DISEASE No apparent infectious precipitation but may have infection . CT shows left-sided colitis as noted. Initial management will consist of bowel rest, IV fluids, analgesics, antiemetics, IV antibiotic therapy with Unasyn Consult GI -appreciate Input Stools negative for any C Diff Colitis and culture is negative S/p Sigmoidoscopy yesterday -ro written report yet in chart Started on Steroid A little better Continue Clears orally Pain control HYPOKALEMIA Secondary to GI losses. IV replacement. Remains low -will supplement more VTE PROPHYLAXIS No anticoagulants due to GI bleeding. SCD's. Ambulate. DISPOSITION Expected discharge to home. GI follow-up with Dr. Nash. FM follow-up with Dr. Stuart. Vital Signs: Date Time Temp Pulse Resp B/P (MAP) Pulse Ox O2 Delivery O2 Flow Rate FiO2 06/14/17 07:49 Room Air 06/14/17 07:46 36.6 91 18 111/68 (82) 93 06/14/17 00:00 36.8 95 20 112/73 (86) 95 Room Air 06/14/17 00:00 Room Air 06/13/17 16:00 Room Air 06/13/17 14:04 105 115/75 (88) 98 Room Air 06/13/17 13:45 103 24 118/75 (89) 98 Room Air 06/13/17 13:00 37.7 113 16 117/70 (86) 94 Room Air 06/13/17 11:38 37.8 131 16 109/70 (83) 96 Room Air Lab Results: Results Past 24 Hours Test 06/14/17 06:22 Range/Units White Blood Count 18.59 4.8-10.8 K/uL Red Blood Count 4.64 4.7-6.1 M/uL Hemoglobin 12.9 14.0-18.0 g/dL Hematocrit 40.4 42-52 % Mean Corpuscular Volume 87.1 80-100 fL Mean Corpuscular Hemoglobin 27.8 25-34 pg Mean Corpuscular Hemoglobin Concent 31.9 32-36 g/dl RDW Standard Deviation 41.1 36.4-46.3 fL RDW Coefficient of Variation 12.8 11.5-14.5 % Platelet Count 361 130-400 K/uL Mean Platelet Volume 10.8 7.4-10.4 fL Sodium Level 143 136-145 mmol/L Potassium Level 3.5 3.5-5.1 mmol/L Chloride Level 107 98-107 mmol/L Carbon Dioxide Level 31 21-32 mmol/L Anion Gap 5.0 3-11 mmol/L Blood Urea Nitrogen 5 7-18 mg/dl Creatinine 0.76 0.60-1.40 mg/dl Est Creatinine Clear Calc Drug Dose 142.5 ml/min Estimated GFR () 139.9 Estimated GFR (Non- 120.7 BUN/Creatinine Ratio 6.7 10-20 Random Glucose 158 70-99 mg/dl Calcium Level 8.6 8.5-10.1 mg/dl Hepatitis B Surface Antigen NEG NEG Hepatitis B Surface Antibody POS Microbiology Results 06/13/17 Shiga Toxin Test, Received Pending 06/13/17 Stool Culture, Received Pending 06/13/17 C.difficile Toxin B Gene (PCR) - Final, Complete No C. difficile toxin B gene detected
[2017-06-14] MEDS: OXYCODONE/ACETAMINOPHEN 5-325 TAB PO PRN ×3 (12:12→23:33)
[2017-06-14] MEDS: DICYCLOMINE HCL 10 MG CAP PO SCH ×2 (13:50→19:31)
[2017-06-14 15:00] VITALS: BP 103/68; PULSE 85; TEMP 37; O2SAT 94
[2017-06-14 15:59] VITALS: BP 120/76; PULSE 59; TEMP 36.8; O2SAT 97
[2017-06-14 16:00] VITALS: O2SAT 97
[2017-06-14 23:39] VITALS: BP 101/63; PULSE 91; TEMP 36.9; O2SAT 93
[2017-06-15] MEDS: AMPICILLIN/SULBACTAM SOD INJ 3,000 MG in SODIUM CHLORIDE 0.9% 100ML 100 ML IV SCH ×4 (02:03→20:12)
[2017-06-15] MEDS: D5W AND LACTATED RINGERS 1,000 ML IV SCH ×2 (05:46→12:48)
[2017-06-15] MEDS: OXYCODONE/ACETAMINOPHEN 5-325 TAB PO PRN ×3 (05:47→21:52)
[2017-06-15 07:44] VITALS: BP 103/65; PULSE 104; TEMP 36.9; O2SAT 97
[2017-06-15] MEDS: METHYLPREDNISOLONE IV 20 MG in SYRINGE 0 ML IV SCH ×3 (08:33→23:22)
[2017-06-15] MEDS: MESALAMINE 250 MG CAPCR PO SCH ×4 (08:34→20:13)
[2017-06-15] MEDS: DICYCLOMINE HCL 10 MG CAP PO SCH ×3 (08:34→20:13)
--- NOTE | 2017-06-15 09:44 | Gastroenterology Progress Note ---
Progress Note Date of Service: Jun 15, 2017 Subjective Pt evaluation today including: conversation w/ patient, physical exam The patient is feeling much better today. He is on day 3 of his hospital admission for his history of refractory Crohn's disease. He notes that his abdominal tenderness is much improved since starting Bentyl yesterday. Review of Systems Constitutional: No fever, No sweats, No fatigue Respiratory: + see HPI, No cough, No dyspnea on exertion Cardiac: No chest pain, No PND, No palpitations Medications Current Inpatient Medications Medications (Trade) Dose Ordered Sig/Ameya Route Start Time Stop Time Status Last Admin Dose Admin Ioversol (Optiray 320) 100 ml UD PRN IV 06/12/17 19:00 06/16/17 18:59 Acetaminophen (Tylenol Tab) 650 mg Q4H PRN PO 06/12/17 22:45 07/12/17 22:44 06/13/17 17:09 650 MG Ondansetron HCl (Zofran Inj) 4 mg Q6H PRN IV 06/12/17 22:45 07/12/17 22:44 06/13/17 10:26 4 MG Ampicillin Sodium/ Sulbactam Sodium 3000 mg/Sodium Chloride 108 ml @ 200 mls/hr Q6H IV 06/13/17 02:00 06/23/17 01:59 06/15/17 08:33 200 MLS/HR Dextrose/Lactated Ringer's 1,000 ml @ 150 mls/hr Q6H40M IV 06/13/17 00:48 07/13/17 00:47 06/15/17 05:46 150 MLS/HR Hydromorphone HCl (Dilaudid Inj) 0.5 mg Q4H PRN IV 06/12/17 23:15 06/26/17 23:14 06/14/17 09:42 0.5 MG Methylprednisolone Sodium Succinate 20 mg/Syringe 0.32 ml @ 1.5 mls/min Q8H IV 06/13/17 16:00 07/13/17 15:59 06/15/17 08:33 1.5 MLS/MIN Miscellaneous (Ppd Check) 1 ea Q48H ONCE N/A 06/15/17 16:00 06/15/17 16:01 Mesalamine (Pentasa Controlled Rel Cap) 250 mg QID PO 06/13/17 17:00 07/13/17 16:59 06/15/17 08:34 250 MG Oxycodone/ Acetaminophen (Percocet 5-325mg Tab) 1 tab Q4H PRN PO 06/14/17 09:30 06/28/17 09:29 06/15/17 05:47 1 TAB Dicyclomine HCl (Bentyl Cap) 10 mg TID PO 06/14/17 14:00 07/14/17 13:59 06/15/17 08:34 10 MG Objective Vital Signs Date Time Temp Pulse Resp B/P (MAP) Pulse Ox O2 Delivery O2 Flow Rate FiO2 06/15/17 09:06 Room Air 06/15/17 07:44 36.9 104 18 103/65 (78) 97 06/15/17 00:00 Room Air 06/14/17 23:39 36.9 91 20 101/63 (76) 93 Room Air 06/14/17 20:00 Room Air 06/14/17 16:00 97 Room Air 06/14/17 15:59 36.8 59 18 120/76 (91) 97 Room Air 06/14/17 15:00 37.0 85 18 103/68 (80) 94 Room Air Physical Exam General Appearance: no apparent distress Eyes: PERRL Neck: no JVD Respiratory/Chest: lungs clear Cardiovascular: regular rate, rhythm, no murmur Abdomen: non tender, soft Neurologic/Psych: oriented x 3 Skin: no jaundice Assessment and Plan Patient with a history of Crohn's disease admitted with refractory symptoms. Please continue with present dosing of steroids. We will likely transition him to oral steroids in 24 hours with potential discharge on Friday if the patient continues to be doing well.
--- NOTE | 2017-06-15 10:46 | Progress Note ---
Internal Med Progress Note Date of Service: Jun 15, 2017. Provider Documentation: SUBJECTIVE: The patient was seen and examined Has had feverish feeling last night Bowel moved 4 times since this morning 06/13/17 Has right Lower Quadrant pain with Nausea S/P Sigmoidoscopy yesterday-likely Crohn's flare Clinically much better Diarrhea and abdominal pain are controlled Solid food started OBJECTIVE: Vital Signs-as noted below Exam: General-Minimal distress at rest Eyes-normal ENT-normal Neck-supple Lungs-Clear to ausucltate bilaterally Heart-Regular.no murmur appreciated Abdomen-Soft,mildly tender all over with worst tenderness in RLQ No guarding and or rigidity Extremities-No edema Neuro-AAOx3 Lab data as noted below. ASSESSMENT & PLAN: FLARE OF CROHN'S DISEASE No apparent infectious precipitation but may have infection . CT shows left-sided colitis as noted. Initial management will consist of bowel rest, IV fluids, analgesics, antiemetics, IV antibiotic therapy with Unasyn Consult GI -appreciate Input Stools negative for any C Diff Colitis and culture is negative S/p Sigmoidoscopy yesterday -ro written report yet in chart Started on Steroid Clinically a lot better Solid food started Discontinue IVF and increase ambulation Continue current treatment HYPOKALEMIA Secondary to GI losses. IV replacement. Remains low -will supplement more Monitor labs VTE PROPHYLAXIS No anticoagulants due to GI bleeding. SCD's. Ambulate. DISPOSITION Expected discharge to home. GI follow-up with Dr. Nash. FM follow-up with Dr. Stuart. Vital Signs: Date Time Temp Pulse Resp B/P (MAP) Pulse Ox O2 Delivery O2 Flow Rate FiO2 06/15/17 09:06 Room Air 06/15/17 07:44 36.9 104 18 103/65 (78) 97 06/15/17 00:00 Room Air 06/14/17 23:39 36.9 91 20 101/63 (76) 93 Room Air 06/14/17 20:00 Room Air 06/14/17 16:00 97 Room Air 06/14/17 15:59 36.8 59 18 120/76 (91) 97 Room Air 06/14/17 15:00 37.0 85 18 103/68 (80) 94 Room Air
[2017-06-15] MEDS ORDERED: NURSING VERBAL MED ORDER ONE (14:00)
[2017-06-15 15:01] VITALS: BP 117/71; PULSE 133; TEMP 36.8; O2SAT 97
[2017-06-15] MEDS ORDERED: PPD CHECK ONE (16:00)
[2017-06-15 23:37] VITALS: BP 102/64; PULSE 83; TEMP 36.9; O2SAT 95
[2017-06-16] MEDS: AMPICILLIN/SULBACTAM SOD INJ 3,000 MG in SODIUM CHLORIDE 0.9% 100ML 100 ML IV SCH ×2 (01:39→08:10)
[2017-06-16 05:57] LABS: HEMATOCRIT 40.1 % (42-52); MEAN CELL VOLUME 86.8 fL (80-100); MEAN CORPUSCULAR HEMOGLOBIN 27.9 pg (25-34); MEAN CORPUSCULAR HGB CONC 32.2 g/dl (32-36); MEAN PLATELET VOLUME 10.4 fL (7.4-10.4); PLATELET COUNT 473 K/uL (130-400); RED BLOOD COUNT 4.62 M/uL (4.7-6.1); WHITE BLOOD COUNT 12.94 K/uL (4.8-10.8)
[2017-06-16 06:36] LABS: BUN/CREATININE RATIO 10.9 (10-20); CALCIUM 8.5 mg/dl (8.5-10.1); CREATININE 0.94 mg/dl (0.60-1.40); MAGNESIUM 2.5 mg/dl (1.8-2.4); PHOSPHORUS 4.6 mg/dl (2.5-4.9); POTASSIUM 3.5 mmol/L (3.5-5.1)
[2017-06-16 07:41] VITALS: BP 124/72; PULSE 59; TEMP 36.7; O2SAT 95
[2017-06-16] MEDS: MESALAMINE 250 MG CAPCR PO SCH ×4 (08:10→20:58)
[2017-06-16] MEDS: DICYCLOMINE HCL 10 MG CAP PO SCH ×3 (08:10→20:58)
[2017-06-16] MEDS: METHYLPREDNISOLONE IV 20 MG in SYRINGE 0 ML IV SCH ×3 (08:10→23:44)
[2017-06-16] MEDS: OXYCODONE/ACETAMINOPHEN 5-325 TAB PO PRN ×2 (08:17→17:07)
[2017-06-16] MEDS ORDERED: PANTOprazole SOD 40 MG TAB PO ONE (10:56)
--- NOTE | 2017-06-16 11:03 | Progress Note ---
Internal Med Progress Note Date of Service: Jun 16, 2017. Provider Documentation: SUBJECTIVE: The patient was seen and examined Has had feverish feeling last night Bowel moved 4 times since this morning 06/13/17 Has right Lower Quadrant pain with Nausea S/P Sigmoidoscopy 06/14/17-likely Crohn's flare Minimal Abdominal pain Epigastric discomfort No nausea and or vomiting OBJECTIVE: Vital Signs-as noted below Exam: General-Minimal distress at rest Eyes-normal ENT-normal Neck-supple Lungs-Clear to ausucltate bilaterally Heart-Regular.no murmur appreciated Abdomen-Soft,mildly tender LLQ-much improved No guarding and or rigidity Extremities-No edema Neuro-AAOx3 Lab data as noted below. ASSESSMENT & PLAN: FLARE OF CROHN'S DISEASE No apparent infectious precipitation but may have infection . CT shows left-sided colitis as noted. Initial management will consist of bowel rest, IV fluids, analgesics, antiemetics, IV antibiotic therapy with Unasyn Consult GI -appreciate Input Stools negative for any C Diff Colitis and culture is negative S/p Sigmoidoscopy yesterday -no written report yet in chart Started on Steroid Clinically a lot better Solid food started and tolerating well Discontinued IVF ,increase ambulation Continue current treatment Will start Protonix for Dyspepsia Stool is positive for Blood -expected and Hb stable Will start Augmentin Likely discharge today/tomorrow HYPOKALEMIA Secondary to GI losses. IV replacement. Remains low -will supplement more Monitor labs-corrected VTE PROPHYLAXIS No anticoagulants due to GI bleeding. SCD's. Ambulate. DISPOSITION Expected discharge to home. GI follow-up with Dr. Nash. FM follow-up with Dr. Stuart. Vital Signs: Date Time Temp Pulse Resp B/P (MAP) Pulse Ox O2 Delivery O2 Flow Rate FiO2 06/16/17 08:00 Room Air 06/16/17 07:41 36.7 59 16 124/72 (89) 95 Room Air 06/16/17 00:00 Room Air 06/15/17 23:37 36.9 83 20 102/64 (77) 95 Room Air 06/15/17 16:00 Room Air 06/15/17 15:01 36.8 133 20 117/71 (86) 97 Lab Results: Results Past 24 Hours Test 06/15/17 19:00 06/16/17 05:27 Range/Units Stool Occult Blood POSITIVE NEGATIVE White Blood Count 12.94 4.8-10.8 K/uL Red Blood Count 4.62 4.7-6.1 M/uL Hemoglobin 12.9 14.0-18.0 g/dL Hematocrit 40.1 42-52 % Mean Corpuscular Volume 86.8 80-100 fL Mean Corpuscular Hemoglobin 27.9 25-34 pg Mean Corpuscular Hemoglobin Concent 32.2 32-36 g/dl RDW Standard Deviation 41.4 36.4-46.3 fL RDW Coefficient of Variation 13.0 11.5-14.5 % Platelet Count 473 130-400 K/uL Mean Platelet Volume 10.4 7.4-10.4 fL Sodium Level 145 136-145 mmol/L Potassium Level 3.5 3.5-5.1 mmol/L Chloride Level 106 98-107 mmol/L Carbon Dioxide Level 31 21-32 mmol/L Anion Gap 8.0 3-11 mmol/L Blood Urea Nitrogen 10 7-18 mg/dl Creatinine 0.94 0.60-1.40 mg/dl Est Creatinine Clear Calc Drug Dose 115.2 ml/min Estimated GFR () 123.8 Estimated GFR (Non- 106.9 BUN/Creatinine Ratio 10.9 10-20 Random Glucose 118 70-99 mg/dl Calcium Level 8.5 8.5-10.1 mg/dl Phosphorus Level 4.6 2.5-4.9 mg/dl Magnesium Level 2.5 1.8-2.4 mg/dl Microbiology Results 06/15/17 C.difficile Toxin B Gene (PCR) - Final, Complete No C. difficile toxin B gene detected
--- NOTE | 2017-06-16 14:12 | Gastroenterology Progress Note ---
Progress Note Date of Service: Jun 16, 2017 Subjective Pt evaluation today including: conversation w/ patient, physical exam, chart review, lab review 31yo on hosp. day #4 for crohn's flare currently on IV steroids and mesalamine, feeling better but still with abdominal pain and now feels constipated, required narcotics for pain overnight. Tolerating diet. Had improvement with bentyl. Review of Systems Constitutional: No fever, No chills Respiratory: No problem reported Cardiac: No problem reported Abdomen: + see HPI, No nausea, No vomiting Musculoskeletal: No problem reported Medications Current Inpatient Medications Medications (Trade) Dose Ordered Sig/Ameya Route Start Time Stop Time Status Last Admin Dose Admin Ioversol (Optiray 320) 100 ml UD PRN IV 06/12/17 19:00 06/16/17 18:59 Acetaminophen (Tylenol Tab) 650 mg Q4H PRN PO 06/12/17 22:45 07/12/17 22:44 06/13/17 17:09 650 MG Ondansetron HCl (Zofran Inj) 4 mg Q6H PRN IV 06/12/17 22:45 07/12/17 22:44 06/13/17 10:26 4 MG Hydromorphone HCl (Dilaudid Inj) 0.5 mg Q4H PRN IV 06/12/17 23:15 06/26/17 23:14 06/14/17 09:42 0.5 MG Methylprednisolone Sodium Succinate 20 mg/Syringe 0.32 ml @ 1.5 mls/min Q8H IV 06/13/17 16:00 07/13/17 15:59 06/16/17 08:10 1.5 MLS/MIN Mesalamine (Pentasa Controlled Rel Cap) 250 mg QID PO 06/13/17 17:00 07/13/17 16:59 06/16/17 12:38 250 MG Oxycodone/ Acetaminophen (Percocet 5-325mg Tab) 1 tab Q4H PRN PO 06/14/17 09:30 06/28/17 09:29 06/16/17 08:17 1 TAB Dicyclomine HCl (Bentyl Cap) 10 mg TID PO 06/14/17 14:00 07/14/17 13:59 06/16/17 12:37 10 MG Pantoprazole Sodium (Protonix Tab) 40 mg QAM PO 06/17/17 09:00 07/17/17 08:59 Amoxicillin/ Clavulanate Potassium (Augmentin Tab) 875 mg BIDM PO 06/16/17 17:00 06/26/17 16:59 Objective Vital Signs Date Time Temp Pulse Resp B/P (MAP) Pulse Ox O2 Delivery O2 Flow Rate FiO2 06/16/17 08:00 Room Air 06/16/17 07:41 36.7 59 16 124/72 (89) 95 Room Air 06/16/17 00:00 Room Air 06/15/17 23:37 36.9 83 20 102/64 (77) 95 Room Air 06/15/17 16:00 Room Air 06/15/17 15:01 36.8 133 20 117/71 (86) 97 Physical Exam General Appearance: WD/WN, no apparent distress Eyes: normal inspection ENT: hearing grossly normal Respiratory/Chest: lungs clear Cardiovascular: regular rate, rhythm Abdomen: normal bowel sounds, soft (nondistended, mild tenderness noted in LLQ without rebound or guarding, pt notes improvement from prior exam) Extremities: no pedal edema Neurologic/Psych: alert, normal mood/affect, oriented x 3 Skin: normal color Laboratory Results Last 24 Hours Test 06/15/17 19:00 06/16/17 05:27 Stool Occult Blood POSITIVE White Blood Count 12.94 K/uL Red Blood Count 4.62 M/uL Hemoglobin 12.9 g/dL Hematocrit 40.1 % Mean Corpuscular Volume 86.8 fL Mean Corpuscular Hemoglobin 27.9 pg Mean Corpuscular Hemoglobin Concent 32.2 g/dl RDW Standard Deviation 41.4 fL RDW Coefficient of Variation 13.0 % Platelet Count 473 K/uL Mean Platelet Volume 10.4 fL Sodium Level 145 mmol/L Potassium Level 3.5 mmol/L Chloride Level 106 mmol/L Carbon Dioxide Level 31 mmol/L Anion Gap 8.0 mmol/L Blood Urea Nitrogen 10 mg/dl Creatinine 0.94 mg/dl Est Creatinine Clear Calc Drug Dose 115.2 ml/min Estimated GFR () 123.8 Estimated GFR (Non- 106.9 BUN/Creatinine Ratio 10.9 Random Glucose 118 mg/dl Calcium Level 8.5 mg/dl Phosphorus Level 4.6 mg/dl Magnesium Level 2.5 mg/dl Assessment and Plan 31yo with crohn's disease with flex sig this admission consistent with active disease, path pending responding to IV steroids but still with some residual pain will increase bentyl to 20mg TID continue IV steroids overnight, if improved, may transition over to PO steroids tomorrow will need out patient GI follow up with Dr. Nash including PPD and hep B serologies if not already obtained. I saw and evaluated the patient. He does appear somewhat improved today still notes having some epigastric discomfort Recommendations Continue with advancing diet as tolerated Continue with intravenous steroids We will hopefully be able to transition to oral steroids tomorrow Continue Bentyl 3 times daily
[2017-06-16 16:00] VITALS: O2SAT 95
[2017-06-16 16:07] VITALS: BP 108/69; PULSE 72; TEMP 36.7; O2SAT 94
[2017-06-16] MEDS: AMOXICILLIN/CLAVULANATE TAB 875 MG TAB PO SCH (17:08)
[2017-06-17 00:16] VITALS: BP 107/69; PULSE 57; TEMP 36.6; O2SAT 96
[2017-06-17 07:01] LABS: HEMATOCRIT 40.9 % (42-52); MEAN CELL VOLUME 86.7 fL (80-100); MEAN CORPUSCULAR HEMOGLOBIN 27.8 pg (25-34); PLATELET COUNT 518 K/uL (130-400); RED BLOOD COUNT 4.72 M/uL (4.7-6.1); WHITE BLOOD COUNT 15.58 K/uL (4.8-10.8)
[2017-06-17 07:07] VITALS: BP 112/71; PULSE 63; TEMP 36.5; O2SAT 94
[2017-06-17 07:38] LABS: CREATININE 0.92 mg/dl (0.60-1.40)
[2017-06-17 07:39] LABS: CALCIUM 8.3 mg/dl (8.5-10.1); MAGNESIUM 2.8 mg/dl (1.8-2.4); POTASSIUM 3.8 mmol/L (3.5-5.1)
[2017-06-17] MEDS: OXYCODONE/ACETAMINOPHEN 5-325 TAB PO PRN (07:42)
[2017-06-17] MEDS: AMOXICILLIN/CLAVULANATE TAB 875 MG TAB PO SCH (07:42)
[2017-06-17] MEDS: MESALAMINE 250 MG CAPCR PO SCH ×2 (07:42→13:26)
[2017-06-17] MEDS: DICYCLOMINE HCL 10 MG CAP PO SCH ×2 (07:42→13:26)
[2017-06-17] MEDS: METHYLPREDNISOLONE IV 20 MG in SYRINGE 0 ML IV SCH (07:43)
[2017-06-17] MEDS ORDERED: PANTOprazole SOD 40 MG TAB PO SCH (09:00)
--- NOTE | 2017-06-17 15:12 | Gastroenterology Progress Note ---
Progress Note Date of Service: Jun 17, 2017 Subjective Pt evaluation today including: conversation w/ patient, conversation w/ family , physical exam, chart review, lab review 31yo being followed with crohn's disease, feeling much better since admission, only discomfort that remains is minimal left sided discomfort associated with having a BM. Tolerating regular diet. Denies N/V, no fever. Family at bedside notes clinical improvement as well. Review of Systems Constitutional: No fever, No chills Respiratory: No shortness of breath Cardiac: No chest pain Abdomen: + see HPI Musculoskeletal: No problem reported Male : No dysuria Medications Current Inpatient Medications Medications (Trade) Dose Ordered Sig/Ameya Route Start Time Stop Time Status Last Admin Dose Admin Acetaminophen (Tylenol Tab) 650 mg Q4H PRN PO 06/12/17 22:45 07/12/17 22:44 06/13/17 17:09 650 MG Ondansetron HCl (Zofran Inj) 4 mg Q6H PRN IV 06/12/17 22:45 07/12/17 22:44 06/13/17 10:26 4 MG Hydromorphone HCl (Dilaudid Inj) 0.5 mg Q4H PRN IV 06/12/17 23:15 06/26/17 23:14 06/14/17 09:42 0.5 MG Methylprednisolone Sodium Succinate 20 mg/Syringe 0.32 ml @ 1.5 mls/min Q8H IV 06/13/17 16:00 07/13/17 15:59 06/17/17 07:43 1.5 MLS/MIN Mesalamine (Pentasa Controlled Rel Cap) 250 mg QID PO 06/13/17 17:00 07/13/17 16:59 06/17/17 13:26 250 MG Oxycodone/ Acetaminophen (Percocet 5-325mg Tab) 1 tab Q4H PRN PO 06/14/17 09:30 06/28/17 09:29 06/17/17 07:42 1 TAB Pantoprazole Sodium (Protonix Tab) 40 mg QAM PO 06/17/17 09:00 07/17/17 08:59 06/17/17 07:42 40 MG Amoxicillin/ Clavulanate Potassium (Augmentin Tab) 875 mg BIDM PO 06/16/17 17:00 06/26/17 16:59 06/17/17 07:42 875 MG Dicyclomine HCl (Bentyl Cap) 20 mg TID PO 06/16/17 21:00 07/14/17 13:59 06/17/17 13:26 20 MG Objective Vital Signs Date Time Temp Pulse Resp B/P (MAP) Pulse Ox O2 Delivery O2 Flow Rate FiO2 06/17/17 12:00 Room Air 06/17/17 08:00 Room Air 06/17/17 07:07 36.5 63 16 112/71 (85) 94 Room Air 06/17/17 00:16 36.6 57 16 107/69 (82) 96 Room Air 06/17/17 00:10 Room Air 06/16/17 16:07 36.7 72 20 108/69 (82) 94 Room Air 06/16/17 16:00 95 Room Air Physical Exam General Appearance: WD/WN, no apparent distress Eyes: PERRL ENT: hearing grossly normal Respiratory/Chest: normal breath sounds, no respiratory distress Cardiovascular: regular rate, rhythm Abdomen: normal bowel sounds, soft, + pertinent finding (minimal LLQ discomfort without rebound or guarding) Extremities: no pedal edema Neurologic/Psych: alert, normal mood/affect, oriented x 3 Skin: normal color Laboratory Results Last 24 Hours Test 06/17/17 06:46 White Blood Count 15.58 K/uL Red Blood Count 4.72 M/uL Hemoglobin 13.1 g/dL Hematocrit 40.9 % Mean Corpuscular Volume 86.7 fL Mean Corpuscular Hemoglobin 27.8 pg Mean Corpuscular Hemoglobin Concent 32.0 g/dl RDW Standard Deviation 41.7 fL RDW Coefficient of Variation 13.1 % Platelet Count 518 K/uL Mean Platelet Volume 10.0 fL Nucleated RBC Absolute Count (auto) 0.09 K/uL Nucleated Red Blood Cells % 0.6 % Sodium Level 141 mmol/L Potassium Level 3.8 mmol/L Chloride Level 104 mmol/L Carbon Dioxide Level 30 mmol/L Anion Gap 7.0 mmol/L Blood Urea Nitrogen 14 mg/dl Creatinine 0.92 mg/dl Est Creatinine Clear Calc Drug Dose 117.8 ml/min Estimated GFR () 127.1 Estimated GFR (Non- 109.7 BUN/Creatinine Ratio 15.0 Random Glucose 110 mg/dl Calcium Level 8.3 mg/dl Magnesium Level 2.8 mg/dl Assessment and Plan 31yo with crohn's disease with flex sig this admission consistent with active disease responding to IV steroids - ok to convert to PO prednisone taper: begin 40mg daily x 2 weeks, 30mg daily x 1 week, 20mg daily x 1 week, 10mg daily x 1 week, 5 mg daily x 1 week then stop. ok to use bentyl to 20mg TID PRN for pain as out patient will arrange out patient GI follow up with Dr. Nash or MLP at [facility] in near future to discuss potential biologic therapy Ok to d/c from GI standpoint GI will sign off, f/u as out pt I saw and evaluated the patient. He notes feeling much improved today. Plan Prednisone taper as written above Patient will follow-up with our office in the next 1-2 weeks
[2017-06-17 15:58] VITALS: BP 119/78; PULSE 58; TEMP 36.8; O2SAT 96
[2017-06-17] MEDS ORDERED: BNT10 PO (16:02)
[2017-06-17] MEDS ORDERED: PRED10TA PO (16:02)
[2017-06-17] MEDS ORDERED: PNT250 PO (16:02)
--- NOTE | 2017-06-17 16:04 | Discharge Instructions ---
Discharge Instructions Date of Service Jun 17, 2017. Admission Reason for Admission: Crohns Disease, Fever Discharge Discharge Diagnosis / Problem: CROHN'S FLARE Discharge Goals Goal(s): Decrease discomfort, Improve function Activity Recommendations Activity Limitations: resume your previous activity . Instructions / Follow-Up Instructions / Follow-Up FOLLOWUP WITH FAMILY DOCTOR IN ONE WEEK FOLLOWUP WITH GI SCHEDULED IN 1-2 WEEKS Current Hospital Diet Patient's current hospital diet: Low Lactose Diet Discharge Diet Recommended Diet: Regular Diet, Low Lactose Diet Procedures Procedures Performed: BX SIGMOID Pending Studies Studies pending at discharge: no Medical Emergencies . Who to Call and When: Medical Emergencies: If at any time you feel your situation is an emergency, please call 911 immediately. . Non-Emergent Contact Non-Emergency issues call your: Primary Care Provider . . "Provider Documentation" section prepared by Miguel A Brown. . VTE Core Measure Inpt VTE Proph given/why not?: SCD's
[2017-06-17 16:08] VITALS: BP 119/78; PULSE 58; TEMP 36.8; O2SAT 96
--- NOTE | 2017-06-17 17:23 | Progress Note ---
Internal Med Progress Note Date of Service: Jun 17, 2017. Provider Documentation: SUBJECTIVE: patient says abdominal pain resolved eating fine still has some blood in stools afebrile want to be discharged OBJECTIVE: Vital Signs-as noted below Exam: General-alert and oriented. Not in distress ENT-Normal hearing Neck-no neck masses supple Lungs-cta b/l no wheezing no crackles present Heart-s1 and s2 heard regular rate and rhythm no murmurs Abdomen-soft bowel sounds present non tender no distension Extremities-no edema present no erythema Neuro-alert and oriented moves extremities Lab data as noted below. ASSESSMENT & PLAN: FLARE OF CROHN'S DISEASE No apparent infectious precipitation but may have infection . CT shows left-sided colitis Stool cx and c diff negative S/p Sigmoidoscopy was given iv steroids and bentyl received abx symptoms improved Discharged on long prednisone taper mesalamine Cr 250mg qid close followup with GI HYPOKALEMIA replaced discharged home Vital Signs: Date Time Temp Pulse Resp B/P (MAP) Pulse Ox O2 Delivery O2 Flow Rate FiO2 06/17/17 16:08 36.8 58 16 96 Room Air 06/17/17 15:58 36.8 58 16 119/78 (92) 96 06/17/17 12:00 Room Air 06/17/17 08:00 Room Air 06/17/17 07:07 36.5 63 16 112/71 (85) 94 Room Air 06/17/17 00:16 36.6 57 16 107/69 (82) 96 Room Air 06/17/17 00:10 Room Air Lab Results: Results Past 24 Hours Test 06/17/17 06:46 Range/Units White Blood Count 15.58 4.8-10.8 K/uL Red Blood Count 4.72 4.7-6.1 M/uL Hemoglobin 13.1 14.0-18.0 g/dL Hematocrit 40.9 42-52 % Mean Corpuscular Volume 86.7 80-100 fL Mean Corpuscular Hemoglobin 27.8 25-34 pg Mean Corpuscular Hemoglobin Concent 32.0 32-36 g/dl RDW Standard Deviation 41.7 36.4-46.3 fL RDW Coefficient of Variation 13.1 11.5-14.5 % Platelet Count 518 130-400 K/uL Mean Platelet Volume 10.0 7.4-10.4 fL Nucleated RBC Absolute Count (auto) 0.09 0-0 K/uL Nucleated Red Blood Cells % 0.6 % Sodium Level 141 136-145 mmol/L Potassium Level 3.8 3.5-5.1 mmol/L Chloride Level 104 98-107 mmol/L Carbon Dioxide Level 30 21-32 mmol/L Anion Gap 7.0 3-11 mmol/L Blood Urea Nitrogen 14 7-18 mg/dl Creatinine 0.92 0.60-1.40 mg/dl Est Creatinine Clear Calc Drug Dose 117.8 ml/min Estimated GFR () 127.1 Estimated GFR (Non- 109.7 BUN/Creatinine Ratio 15.0 10-20 Random Glucose 110 70-99 mg/dl Calcium Level 8.3 8.5-10.1 mg/dl Magnesium Level 2.8 1.8-2.4 mg/dl
--- NOTE | 2017-06-17 17:24 | Discharge Summary ---
Discharge Summary Date of Service Jun 17, 2017. Discharge Summary Admission Date: Jun 12, 2017 at 22:40 Discharge Date: Jun 17, 2017 Discharge Disposition: Home Principal Diagnosis: Crohn's flare Secondary Diagnoses/Problems: (1) Bronchitis Status: Resolved (2) Crohn's disease Status: Resolved Procedures: ct abd/pelvis: 1. Moderate circumferential wall thickening of the colon extending from the rectum to the hepatic flexure with surrounding inflammatory changes is compatible with colitis. Considerations would include infectious colitis or inflammatory bowel disease. 2. No bowel obstruction. 3. Reactive small bowel ileus is noted along with reactive adenopathy. Consultations: GI Medication Reconciliation New Medications: Prednisone Tab (Prednisone) 10 Mg Tab 40 MG PO UD, #102 TAB PREDNISONE 40MG PO DAILY X 2 WEEKS THEN PREDNISONE 30MG PO DAILY X 1 WEEK THEN PREDNISONE 20MG PO DAILY X 1 WEEK THEN PREDNISONE 10MG PO DAILY X 1 WEEK THEN PREDNISONE 5MG PO DAILY X 1 WEEK THEN STOP. Dicyclomine HCl (Dicyclomine HCl) 10 Mg Cap 20 MG PO TID PRN for abdominal cramps, #30 CAP Mesalamine Cont Rel (Pentasa) 250 Mg Caper 250 MG PO QID for 30 Days, 1 Refill Discontinued Medications: Mesalamine (Lialda) 1.2 Gm Tab 2 TAB PO QAM, TAB 3 Refills Admission Information HPI (per Admitting provider): 31 YO male followed by Dr. Nash for GI. Plans on establishing with Dr. Stuart for primary care. History of Crohn's disease diagnosed at the age of 17. Crohn's has been quiescent over past several years until 2-3 weeks ago. Developed several loose stools / day, occasionally with a small amount of rectal bleeding. Intermittent LLQ abdominal pain. Low grade fevers. He was seen by Dr. Nash in clinic on 06/11/17. Stool studies and other labs were ordered. C diff was negative. Preliminary stool culture negative so far. Started on Lialda. Came to ED tonight because of worsening symptoms- fever, nausea, vomiting, more frequent loose stools, more severe left-sided abdominal pain. . Physical Exam (per Admitting): General Appearance: + mild distress Head: normocephalic, atraumatic Eyes: normal inspection, PERRL, EOMI, sclerae normal ENT: hearing grossly normal, pharynx normal Neck: supple, no adenopathy, thyroid normal, trachea midline Respiratory/Chest: lungs clear, no respiratory distress, no accessory muscle use Cardiovascular: regular rate, rhythm, no edema, no gallop, no JVD, no murmur Abdomen/GI: normal bowel sounds, soft, no organomegaly, no pulsatile mass, + pertinent finding (moderate left-sided tenderness without rebound) Extremities/Musculoskelatal: no calf tenderness, no pedal edema 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 CT shows left-sided colitis Stool cx and c diff negative S/p Sigmoidoscopy was given iv steroids and bentyl received abx symptoms improved Discharged on long prednisone taper mesalamine Cr 250mg qid close followup with GI HYPOKALEMIA replaced discharged home Total time spent on discharge = 35MINUTES This includes examination of the patient, discharge planning, medication reconciliation, and communication with other providers. Discharge Instructions Please take this sheet to every appointment for the next month Discharge Instructions Date of Service Jun 17, 2017. Admission Reason for Admission: Crohns Disease, Fever Discharge Discharge Diagnosis / Problem: CROHN'S FLARE Discharge Goals Goal(s): Decrease discomfort, Improve function Activity Recommendations Activity Limitations: resume your previous activity . Instructions / Follow-Up Instructions / Follow-Up FOLLOWUP WITH FAMILY DOCTOR IN ONE WEEK FOLLOWUP WITH GI SCHEDULED IN 1-2 WEEKS Current Hospital Diet Patient's current hospital diet: Low Lactose Diet Discharge Diet Recommended Diet: Regular Diet, Low Lactose Diet Procedures Procedures Performed: BX SIGMOID Pending Studies Studies pending at discharge: no Medical Emergencies . Who to Call and When: Medical Emergencies: If at any time you feel your situation is an emergency, please call 911 immediately. . Non-Emergent Contact Non-Emergency issues call your: Primary Care Provider . . "Provider Documentation" section prepared by Miguel A Brown. . VTE Core Measure Inpt VTE Proph given/why not?: SCD's
--- NOTE | 2017-06-24 09:48 | GI REPORT ---
Procedure Date: 06/13/2017 1:15 PM Procedure: Flexible Sigmoidoscopy Indications: High risk colon cancer surveillance: Crohn's disease large intestine Medicines: General Anesthesia Complications: No immediate complications. Estimated blood loss: None. Estimated Blood Loss: Estimated blood loss was minimal. Procedure: Pre-Anesthesia Assessment: - Pre-Anesthesia Assessment: - Prior to the procedure, a History and Physical was performed, and patient medications, allergies and sensitivities were reviewed. The patient's tolerance of previous anesthesia was reviewed. Please see [place] for complete details. - The risks and benefits of the procedure and the sedation options and risks were discussed with the patient. All questions were answered and informed consent was obtained. - Patient identification and proposed procedure were verified prior to the procedure by the physician and the nurse. The procedure was verified in the pre-procedure area in the procedure room. After obtaining informed consent, the endoscope was passed carefully and meticuously under direct vision and only advanced when the lumen was clearly identified, C02 insuflation was utilized throughout the entirity of the procedure. Throughout the procedure, the patient's blood pressure, pulse, and oxygen saturations were monitored continuously. After obtaining informed consent, the endoscope was passed under direct vision. Throughout the procedure, the patient's blood pressure, pulse, and oxygen saturations were monitored continuously. The scope was introduced through the anus and advanced to the sigmoid colon. The flexible sigmoidoscopy was accomplished without difficulty. The quality of the bowel preparation was good. Findings: A diffuse area of severely congested, friable (with spontaneous bleeding), hemorrhagic, pseudopolypoid and ulcerated mucosa was found in the sigmoid colon and rectum. Biopsies were taken with a cold forceps for histology. Impression: - Congested, friable (with spontaneous bleeding), hemorrhagic, pseudopolypoid and ulcerated mucosa in the sigmoid colon. Biopsied. - Diffuse severe inflammation was found in the rectum and sigmoid colon. Recommendation: - [facility]. - Preparation for biologic therapy - Initation of steroids with solumedrol 20 mg IV q 8 - Advance diet as tolerated Barrett Randhawa MD 06/24/2017 9:47:48 AM This report has been signed electronically. Note Initiated On: 06/13/2017 1:15 PM I attest to the content of the Intraoperative Record and orders documented therein, exceptions below
== END 2017-06-17 16:50 | disposition home or self-care (01) | DRG 387 ==
LOC: C.EDB 18:30 → C.MED 22:40 → ENRESERV 22:52 → C.MED 06-13 21:25
PROVIDERS: ADMIT Hospitalist; ATTEND Internal Medicine
PROC: 0DBN8ZX Excision of Sigmoid Colon, Via Natural or Artificial Opening Endoscopic, Diagnostic (ICD-10-PCS; principal; 2017-06-16)
DX: K50.10 Crohn's disease of large intestine without complications (principal); E87.6 Hypokalemia; J40 Bronchitis, not specified as acute or chronic

== ENCOUNTER 2017-07-14 07:05 | Emergency (ER) | payer OTHER ==
[~2017-07-14] VITALS: Ht 170.2 cm; Wt 72.8 kg
[~2017-07-14 07:05] MED LIST: BNT10 PO; PNT250 PO; PRED10TA PO
[2017-07-14 07:10] VITALS: TEMP 36.5; Ht 170.2 cm; Wt 72.8 kg
[2017-07-14] MEDS ORDERED: HYDR25SU6 RE (07:31)
[2017-07-14] MEDS ORDERED: TRAM-10 PO (07:31)
[2017-07-14 08:20] VITALS: BP 121/82; PULSE 100; O2SAT 95
--- NOTE | 2017-07-14 15:40 | EMERGENCY ROOM VISIT NOTE ---
ED Visit Note First contact with patient: 07:15 Chief Complaint: Bleeding area History of Present Illness: Mr. Velasco is a 31-year-old white male who ambulates into the ED complaining of bleeding from the rectum. Heart clear patient reports she has a history of Crohn's disease and is just had a recent flare. He was seen by his event coordinator and was diagnosed with a hemorrhoid that was causing pain. Patient reports he was sleeping and woke up with the sensation of feeling like he wet the bed. He was walking over to the bedroom and noted some dripping between his legs. He had a bowel movement and noticed a large amount of bright red blood in the toilet. He felt his rectum where there was a previous lump that was defined as a hemorrhoid and the lump was gone. Patient does report that he has relief of the pain that was associated with the previous lump. He has no other plants at this time. Patient denies lightheadedness, dizziness, respiratory tract symptoms, shortness of breath, abdominal pain, nausea, vomiting, abnormal bleeding or easy bruising. Review of Systems: As noted above in history of present illness. Past Medical History: As previously noted, bronchitis and status post wisdom teeth extraction. Current Medications: Medications Dose Route/Sig Max Daily Dose Days Date Category Dose Instructions Ultram (Tramadol HCl) 50 Mg Tab 50 Mg PO BID PRN 07/14/17 Reported Anucort-Hc (Hydrocortisone Acetate (Rectal) 25 Mg Sup 1 Supp RE DAILY 07/14/17 Reported Prednisone 10 Mg Tab 40 Mg PO UD 06/17/17 Rx PREDNISONE 40MG PO DAILY X 2 WEEKS THEN PREDNISONE 30MG PO DAILY X 1 WEEK THEN PREDNISONE 20MG PO DAILY X 1 WEEK THEN PREDNISONE 10MG PO DAILY X 1 WEEK THEN PREDNISONE 5MG PO DAILY X 1 WEEK THEN STOP. Pentasa (Mesalamine) 250 Mg Caper 250 Mg PO QID 30 06/17/17 Rx Allergies to Medications: Patient denies. Social History: Patient is currently employed; he feels safe in his home environment; he denies tobacco use; he admits to alcohol use. Physical Examination: Vital Signs: Date Time Temp Pulse Resp B/P (MAP) Pulse Ox O2 Delivery O2 Flow Rate FiO2 07/14/17 08:20 100 18 121/82 95 Room Air 07/14/17 07:26 108 20 123/82 97 Room Air 07/14/17 07:10 36.5 118 20 121/85 97 Room Air GENERAL: 31-year-old male in acute distress, nontoxic-appearing, afebrile and hemodynamically stable. NEUROLOGICAL: Awake, alert and oriented to person, place and time. Answering questions appropriately and following commands. SKIN: Warm, dry and pink. HEENT: Atraumatic and normocephalic. ABDOMEN: Flat, soft and nontender. Positive bowel sounds in all quadrants. No guarding, rigidity or organomegaly. RECTAL: No external tags or hemorrhoids. At 3 o'clock position over the perianal area there is a 2-3 mm laceration of the skin; patient reports this is where his previous lump was. There is minimal oozing from this wound. The area is mildly tender to palpation. It does not appear indurated or fluctuant. There is no surrounding erythema. EXTREMITIES: Moves all extremities well on command and with purpose. ED Course: Patient is assessed as noted above. Medications medication list was reviewed. Patient's case with Dr. Adame; we agreed on diagnostic approach, treatment, disposition and plan. Patient was educated about today's findings and instructed on his treatment plan ; he verbalizes understanding and agreement with this plan. Clinical Impression: Perianal bleeding. Disposition: Patient discharged home in stable condition; prior to departure he was reassessed and still subjectively reported he was still pain and symptom- free. Plan: Patient was encouraged use 650 mg of acetaminophen every 6 hours as needed for pain. Patient was encouraged use OTC preparation H whites and follow packaging instructions. Patient was encouraged to avoid bearing down when moving bowels or sitting for long periods of time. Patient was encouraged to consider using a doughnut pillow. Patient is encouraged to contact his event coordinator for follow-up care and treatment. Patient was encouraged return ED for uncontrolled pain, uncontrolled bleeding or any new/concerning symptoms.
== END 2017-07-14 08:27 | disposition home or self-care (01) ==
LOC: C.EDB 07:06 → C.EDA 08:27
DX: K62.5 Hemorrhage of anus and rectum (principal); K50.90 Crohn's disease, unspecified, without complications; Z79.899 Other long term (current) drug therapy